=== PATIENT | male | born 1980 | race Caucasian/White ===

== ENCOUNTER 2022-06-11 03:21 | Inpatient (IN) | payer MEDICARE, OTHER ==
[~2022-06-11] VITALS: Ht 167.6 cm; Wt 82.5 kg
[2022-06-11] MEDS ORDERED: BACITRACIN 0.9 GM PACKET OINTMENT TP ONE (04:00)
[2022-06-11] MEDS ORDERED: PERTUSS(ACELL),DIPH,TET VAC/PF 0.5 ML SYRINGE IM. ONE (04:00)
[2022-06-11] MEDS ORDERED: TRIA15CR49 TP (07:32)
[2022-06-11] MEDS ORDERED: CHLO100T36 PO (07:32)
[2022-06-11] MEDS ORDERED: DESM0.2T4 PO (07:32)
[2022-06-11] MEDS ORDERED: GABA-533 PO (07:32)
[2022-06-11] MEDS ORDERED: OLAN20TA35 PO (07:32)
[2022-06-11] MEDS ORDERED: TOPI100T37 PO (07:32)
[2022-06-11] MEDS ORDERED: LEVO330T PO (07:32)
[2022-06-11] MEDS ORDERED: CLON0.5T4 PO (07:32)
[2022-06-11] MEDS ORDERED: RIFAX550 PO (07:32)
[2022-06-11] MEDS ORDERED: ALBU8HFA IH (07:32)
[2022-06-11] MEDS ORDERED: DESM0.1T23 PO (07:32)
[2022-06-11] MEDS ORDERED: DIVA-112 PO (07:32)
[2022-06-11] MEDS ORDERED: PROP20TA96 PO (07:32)
[2022-06-11 07:56] LABS: BASOPHILS % (AUTO) 0.2 % (0.0-2.0); EOSINOPHILS % (AUTO) 0.6 % (1.0-6.0); HEMOGLOBIN 12.6 g/dL (13.5-17.5); LYMPHOCYTES # (AUTO) 1.6 K/uL (1.0-4.8); LYMPHOCYTES % (AUTO) 25.4 % (22.0-44.0); MEAN CORPUSCULAR HGB CONC 34.1 G/dL (31.0-37.0); MEAN CORPUSCULAR VOLUME 97 fL (80-100); MONOCYTES # (AUTO) 0.9 K/uL (0.1-1.0); MONOCYTES % (AUTO) 14.4 % (2.0-9.0); NEUTROPHILS # (AUTO) 3.6 K/uL (1.8-7.7); NEUTROPHILS % (AUTO) 59.4 % (40.0-70.0); PLATELET COUNT (AUTO) 169 K/uL (150-450); RED BLOOD CELL COUNT(AUTO) 3.82 MIL/uL (4.50-5.90); RED CELL DISTRIBUTION WIDTH 13.2 % (11.5-14.5)
[2022-06-11 08:00] LABS: ANION GAP 6 mmol/L (8-16); CALCIUM, TOTAL 9.7 mg/dL (8.8-10.5); CARBON DIOXIDE 30 mmol/L (22-29); CHLORIDE 109 mmol/L (98-107); GLOMERULAR FILTR. RATE CALC > 60 mL/min (>60); GLUCOSE,RANDOM 87 mg/dL (70-110); POTASSIUM 4.2 mmol/L (3.5-5.1); SODIUM SERUM 145 mmol/L (136-145); UREA NITROGEN, BLOOD 11 mg/dL (7-18)
[2022-06-11 08:07] LABS: ALANINE AMINOTRANSFERASE 80 U/L (12-78); ALKALINE PHOSPHATASE 100 U/L (46-116); ASPARTATE AMINOTRANSFERASE 45 U/L (15-37); BILIRUBIN,TOTAL 0.2 mg/dL (0.1-1.0); COVID AG,FIA SOURCE NASAL SWAB; TOTAL PROTEIN, SERUM 7.9 g/dL (6.4-8.2); VALPROIC ACID 69 mcg/mL (50-100)
[2022-06-11 08:08] LABS: AMMONIA 15 umol/L (11-32)
[2022-06-11 08:09] LABS: LACTIC ACID 0.7 mmol/L (0.4-2.0)
[2022-06-11] MEDS ORDERED: SODIUM CHLORIDE 0.9% 1,000 ML IV ONE (08:30)
[2022-06-11] MEDS ORDERED: ACETAMINOPHEN 325 MG TABLET PO PRN (08:30)
[2022-06-11] MEDS ORDERED: CefTRIAXone 1 GM/DEXTROSE 50 ML IV ONE (08:30)
[2022-06-11] MEDS ORDERED: AZITHROMYCIN 500 MG/NS 250 ML IV ONE (08:30)
[2022-06-11] MEDS: DIVALPROEX SODIUM 250 MG DR TABLET PO SCH ×2 (09:00→23:41)
[2022-06-11 10:56] LABS: GLUCOSE,POINT OF CARE 83 MG/DL (70-110)
[2022-06-11] MEDS ORDERED: VALPROATE SODIUM 500 MG in DEXTROSE 5%-WATER 50 ML IV ONE (11:00)
[2022-06-11] MEDS: FAMOTIDINE 20 MG TABLET PO SCH (11:21)
[2022-06-11] MEDS: DOCUSATE SODIUM 100 MG CAPSULE PO SCH ×2 (11:22→20:12)
[2022-06-11 12:04] LABS: INFLUENZA TYPE A NEGATIVE FOR TYPE A (NEGATIVE); INFLUENZA TYPE B NEGATIVE FOR TYPE B (NEGATIVE)
[2022-06-11] MEDS: HEPARIN SODIUM,PORCINE 5,000 UNITS/ML VIAL SQ SCH ×2 (15:30→23:40)
[2022-06-11 19:16] LABS: AMPHET/METH SCREEN,URINE NEGATIVE (NEGATIVE); BARBITURATE SCREEN, URINE NEGATIVE (NEGATIVE); BENZODIAZEPINES SCREEN,URINE NEGATIVE (NEGATIVE); CANNABINOID SCREEN,URINE NEGATIVE (NEGATIVE); COCAINE SCREEN,URINE NEGATIVE (NEGATIVE); METHADONE SCREEN, URINE NEGATIVE (NEGATIVE); OPIATE SCREEN,URINE NEGATIVE (NEGATIVE); PHENCYCLIDINE SCREEN,URINE NEGATIVE (NEGATIVE)
[2022-06-11 19:32] LABS: APPEARANCE,URINE CLEAR (CLEAR); BILIRUBIN,URINE NEGATIVE (NEGATIVE); GLUCOSE, URINE (UA) NEGATIVE (NEGATIVE); KETONES,URINE NEGATIVE (NEGATIVE); LEUKOCYTE ESTERASE ,URINE NEGATIVE (NEGATIVE); NITRATE,URINE NEGATIVE (NEGATIVE); OCCULT BLOOD,URINE NEGATIVE (NEGATIVE); PROTEIN,URINE NEGATIVE (NEGATIVE); SPECIFIC GRAVITIY, URINE 1.012 (1.003-1.030); UROBILINOGEN,URINE <=1.0 mg/dL (<=1.0)
[2022-06-12] MEDS: CefTRIAXone 1 GM/DEXTROSE 50 ML IV SCH (07:48)
[2022-06-12] MEDS: HEPARIN SODIUM,PORCINE 5,000 UNITS/ML VIAL SQ SCH ×3 (08:00→23:55)
[2022-06-12] MEDS: DOCUSATE SODIUM 100 MG CAPSULE PO SCH ×2 (08:25→23:39)
[2022-06-12] MEDS: DIVALPROEX SODIUM 250 MG DR TABLET PO SCH (09:08)
[2022-06-12] MEDS: FAMOTIDINE 20 MG TABLET PO SCH (09:08)
[2022-06-12 09:38] VITALS: BP 117/91
[2022-06-12] MEDS ORDERED: LORazepam 2 MG/ML VIAL IVP PRN (11:30)
[2022-06-12 11:45] VITALS: BP 143/82
[2022-06-12] MEDS ORDERED: SODIUM CHLORIDE 0.9% 100 ML ONE (12:35)
[2022-06-12] MEDS ORDERED: BISMUTH SUBSALICYLATE 525 MG/30 ML SUSPENSION UDCUP PO PRN (13:30)
[2022-06-12] MEDS: LevETIRAcetam 750 MG in DEXTROSE 5%-WATER 100 ML IV SCH ×2 (13:55→23:53)
[2022-06-12 16:00] VITALS: BP 131/77
[2022-06-12 20:28] VITALS: BP 125/77
[2022-06-12] MEDS: DIVALPROEX SODIUM 500 MG DR TABLET PO SCH (23:40)
[2022-06-13 01:07] VITALS: BP 132/73
[2022-06-13 05:20] VITALS: BP 133/80
[2022-06-13] MEDS: DOCUSATE SODIUM 100 MG CAPSULE PO SCH (08:03)
[2022-06-13] MEDS: CefTRIAXone 1 GM/DEXTROSE 50 ML IV SCH (08:03)
[2022-06-13] MEDS: HEPARIN SODIUM,PORCINE 5,000 UNITS/ML VIAL SQ SCH (08:03)
[2022-06-13] MEDS: FAMOTIDINE 20 MG TABLET PO SCH (08:04)
[2022-06-13] MEDS: DIVALPROEX SODIUM 500 MG DR TABLET PO SCH (08:04)
[2022-06-13 08:24] VITALS: BP 132/75
[2022-06-13 11:39] VITALS: BP 138/83
[2022-06-13] MEDS: LevETIRAcetam 750 MG in DEXTROSE 5%-WATER 100 ML IV SCH (13:08)
[2022-06-13] MEDS ORDERED: LEVE250T4 PO (13:10)
[2022-06-13] MEDS ORDERED: LEVO-72 PO (13:11)
== END 2022-06-13 15:35 | disposition home health service (06) | DRG 100 ==
LOC: EMS 03:21 → AHU 10:29 → 5S 06-12 04:11
PROVIDERS: ADMIT Internal Medicine; ATTEND Internal Medicine
PROC: 0HQ0XZZ Repair Scalp Skin, External Approach (ICD-10-PCS; principal; 2022-06-11)
DX: G40.909 Epilepsy, unspecified, not intractable, without status epilepticus (principal); J69.0 Pneumonitis due to inhalation of food and vomit; Z20.822 Contact with and (suspected) exposure to COVID-19; S01.01XA Laceration without foreign body of scalp, initial encounter; R62.50 Unspecified lack of expected normal physiological development in childhood; W19.XXXA Unspecified fall, initial encounter; F32.A Depression, unspecified; Y93.01 Activity, walking, marching and hiking; Q90.9 Down syndrome, unspecified; Z88.8 Allergy status to other drugs, medicaments and biological substances; Z88.1 Allergy status to other antibiotic agents; Z91.040 Latex allergy status; Y92.89 Other specified places as the place of occurrence of the external cause; Y99.8 Other external cause status; T68.XXXA Hypothermia, initial encounter
CPT/HCPCS: 70450; 70551; 71045; 72125; 72141; 80053; 80164; 80307; 81003; 82140; 82962; 83605; 84484; 85025; 87040; 87804; 93005; 93306; 97161; 97530; 99285; G0378; G0480; J0456; J0696; J0712; J1644; J3490; J7050; J7060; 36415-L1; 36415-TC

== ENCOUNTER 2024-08-09 08:53 | Inpatient (IN) | payer MEDICARE, OTHER ==
[~2024-08-09] VITALS: Ht 157.5 cm; Wt 68.5 kg
[~2024-08-09 08:53] MED LIST: ALBU18HF12 IH; DIVA-112 PO; GABA-534 PO; LEVE250T81 PO; LEVO-72 PO; OLAN20TA82 PO; PROP20TA96 PO; RIFAX550 PO; TOPI-258 PO; TRIA15CR49 TP
[2024-08-09 09:30] LABS: ANION GAP 8 mmol/L (8-16); CALCIUM, TOTAL 8.9 mg/dL (8.8-10.5); CARBON DIOXIDE 25 mmol/L (22-29); CHLORIDE 107 mmol/L (98-107); CREATININE 0.85 mg/dL (0.60-1.30); GLOMERULAR FILTR. RATE CALC > 60 mL/min (>60); GLUCOSE,RANDOM 171 mg/dL (70-110); POTASSIUM 3.6 mmol/L (3.5-5.1); SODIUM SERUM 140 mmol/L (136-145); UREA NITROGEN, BLOOD 22 mg/dL (7-18)
[2024-08-09] MEDS: LORazepam 2 MG/ML VIAL IVP ONE (09:35)
[2024-08-09 09:38] LABS: BASOPHILS % (AUTO) 0.3 % (0.0-2.0); EOSINOPHILS % (AUTO) 2.4 % (1.0-6.0); HEMATOCRIT 37.7 % (41-53); HEMOGLOBIN 12.1 g/dL (13.5-17.5); LYMPHOCYTES # (AUTO) 2.2 K/uL (1.0-4.8); LYMPHOCYTES % (AUTO) 46.3 % (22.0-44.0); MEAN CORPUSCULAR HEMOGLOBIN 30.9 pg (26.0-34.0); MEAN CORPUSCULAR VOLUME 97 fL (80-100); MONOCYTES # (AUTO) 0.3 K/uL (0.1-1.0); MONOCYTES % (AUTO) 6.8 % (2.0-9.0); NEUTROPHILS # (AUTO) 2.1 K/uL (1.8-7.7); NEUTROPHILS % (AUTO) 44.2 % (40.0-70.0); PLATELET COUNT (AUTO) 171 K/uL (150-450); RED BLOOD CELL COUNT(AUTO) 3.91 MIL/uL (4.50-5.90); RED CELL DISTRIBUTION WIDTH 13.8 % (11.5-14.5); WHITE BLOOD COUNT (AUTO) 4.9 K/uL (4.5-11.0)
[2024-08-09] MEDS: LevETIRAcetam 1,000 MG in DEXTROSE 5%-WATER 100 ML IV ONE (09:44)
[2024-08-09] MEDS ORDERED: MELA5TAB40 PO (10:33)
[2024-08-09] MEDS ORDERED: CHLO100T42 PO (10:33)
[2024-08-09] MEDS ORDERED: OLAN10TA74 PO (10:33)
[2024-08-09] MEDS ORDERED: DESM0.2T4 PO (10:33)
[2024-08-09] MEDS ORDERED: TRAZ-257 PO (10:33)
[2024-08-09] MEDS ORDERED: GEMF-77 PO (10:33)
[2024-08-09 13:22] VITALS: BP 112/79; PULSE 65; RESP 18; TEMP 98; O2SAT 98
[2024-08-09] MEDS ORDERED: MORPHINE SULFATE 2 MG/ML SYRINGE IVP PRN (15:45)
[2024-08-09] MEDS ORDERED: ONDANSETRON HCL 4 MG/2 ML VIAL IVP PRN (15:45)
[2024-08-09] MEDS ORDERED: HYDROCODONE/ACETAMINOPHEN 5-325 MG TABLET PO PRN (15:45)
[2024-08-09] MEDS ORDERED: MELATONIN 5 MG TABLET PO PRN (15:45)
[2024-08-09] MEDS ORDERED: IPRATROPIUM BROMIDE 0.5 MG/2.5 ML NEB SOLUTION NEB PRN (15:45)
[2024-08-09] MEDS ORDERED: BISACODYL 10 MG RECTAL RECTAL SUPPOSITORY PR PRN (15:45)
[2024-08-09] MEDS ORDERED: ALBUTEROL SULFATE 2.5 MG/0.5 ML NEB SOLUTION NEB PRN (15:45)
[2024-08-09] MEDS ORDERED: MAGNESIUM HYDROXIDE SUSPENSION 30 ML UDCUP PO PRN (15:45)
[2024-08-09 15:48] VITALS: BP 102/77; PULSE 70; RESP 18; TEMP 98; O2SAT 96
[2024-08-09 16:17] LABS: ANION GAP 8 mmol/L (8-16); CALCIUM, TOTAL 9.1 mg/dL (8.8-10.5); CARBON DIOXIDE 25 mmol/L (22-29); CHLORIDE 108 mmol/L (98-107); CREATININE 0.66 mg/dL (0.60-1.30); GLOMERULAR FILTR. RATE CALC > 60 mL/min (>60); GLUCOSE,RANDOM 110 mg/dL (70-110); POTASSIUM 3.2 mmol/L (3.5-5.1); SODIUM SERUM 141 mmol/L (136-145); UREA NITROGEN, BLOOD 22 mg/dL (7-18)
[2024-08-09 16:21] LABS: ALANINE AMINOTRANSFERASE 20 U/L (12-78); ALBUMIN 3.3 g/dL (3.4-5.0); ALKALINE PHOSPHATASE 95 U/L (46-116); ASPARTATE AMINOTRANSFERASE 16 U/L (15-37); BILIRUBIN,TOTAL 0.3 mg/dL (0.1-1.0); TOTAL PROTEIN, SERUM 7.6 g/dL (6.4-8.2)
[2024-08-09] MEDS: PROPRANOLOL HCL 20 MG TABLET PO SCH (17:11)
[2024-08-09] MEDS: HEPARIN SODIUM,PORCINE 5,000 UNITS/ML VIAL SQ SCH (17:11)
[2024-08-09] MEDS: ChlorproMAZINE HCL 100 MG TABLET PO SCH (17:11)
[2024-08-09] MEDS: OLANZapine 10 MG TABLET PO SCH (17:12)
[2024-08-09] MEDS: LACTULOSE 20 GM/30 ML SOLUTION UDCUP PO SCH (17:12)
[2024-08-09 19:19] VITALS: BP 104/73; PULSE 75; RESP 14; TEMP 97.7; O2SAT 100
[2024-08-09 20:45] VITALS: BP 96/64; PULSE 75; RESP 18; TEMP 97.7; O2SAT 100
[2024-08-09] MEDS: GEMFIBROZIL 600 MG TABLET PO SCH (20:46)
[2024-08-09] MEDS: TraZODone HCL 100 MG TABLET PO SCH (20:48)
[2024-08-09] MEDS: DESMOPRESSIN ACETATE 0.2 MG TABLET PO SCH (20:48)
[2024-08-09] MEDS: DIVALPROEX SODIUM 500 MG DR TABLET PO SCH (20:51)
[2024-08-09 23:32] VITALS: BP 114/83; PULSE 76; RESP 15; TEMP 97.8; O2SAT 98
[2024-08-10 03:22] VITALS: BP 119/86; PULSE 89; RESP 16; TEMP 97.9; O2SAT 96
[2024-08-10 06:49] LABS: BASOPHILS % (AUTO) 0.5 % (0.0-2.0); EOSINOPHILS % (AUTO) 2.6 % (1.0-6.0); HEMATOCRIT 38.4 % (41-53); HEMOGLOBIN 12.9 g/dL (13.5-17.5); LYMPHOCYTES # (AUTO) 1.8 K/uL (1.0-4.8); LYMPHOCYTES % (AUTO) 29.5 % (22.0-44.0); MEAN CORPUSCULAR HEMOGLOBIN 31.7 pg (26.0-34.0); MEAN CORPUSCULAR HGB CONC 33.6 G/dL (31.0-37.0); MEAN CORPUSCULAR VOLUME 94 fL (80-100); MONOCYTES # (AUTO) 0.7 K/uL (0.1-1.0); MONOCYTES % (AUTO) 12.6 % (2.0-9.0); NEUTROPHILS # (AUTO) 3.3 K/uL (1.8-7.7); NEUTROPHILS % (AUTO) 54.8 % (40.0-70.0); PLATELET COUNT (AUTO) 173 K/uL (150-450); RED BLOOD CELL COUNT(AUTO) 4.07 MIL/uL (4.50-5.90); RED CELL DISTRIBUTION WIDTH 13.9 % (11.5-14.5)
[2024-08-10 07:07] LABS: ANION GAP 8 mmol/L (8-16); CARBON DIOXIDE 24 mmol/L (22-29); CHLORIDE 106 mmol/L (98-107); CREATININE 0.77 mg/dL (0.60-1.30); GLOMERULAR FILTR. RATE CALC > 60 mL/min (>60); GLUCOSE,RANDOM 102 mg/dL (70-110); POTASSIUM 3.7 mmol/L (3.5-5.1); SODIUM SERUM 138 mmol/L (136-145); UREA NITROGEN, BLOOD 19 mg/dL (7-18)
[2024-08-10 07:12] VITALS: BP 105/75; PULSE 83; RESP 17; TEMP 97.8; O2SAT 95
[2024-08-10] MEDS: GABAPENTIN 400 MG CAPSULE PO SCH (09:26)
[2024-08-10] MEDS: PANTOPRAZOLE SODIUM 40 MG DR TABLET PO SCH (09:27)
[2024-08-10] MEDS: ACETAMINOPHEN 325 MG TABLET PO PRN (09:28)
[2024-08-10 11:06] VITALS: BP 96/71; PULSE 82; RESP 18; TEMP 97.9; O2SAT 95
[2024-08-10 16:42] VITALS: BP 98/72; PULSE 80; RESP 18; TEMP 98; O2SAT 96
[2024-08-10 20:36] VITALS: BP 120/84; PULSE 93; RESP 18; TEMP 97.7; O2SAT 98
[2024-08-10] MEDS: ZOLPIDEM TARTRATE 5 MG TABLET PO PRN (23:44)
[2024-08-11 00:32] VITALS: BP 101/61; PULSE 75; RESP 18; TEMP 97.3; O2SAT 100
[2024-08-11 05:00] VITALS: BP 113/80; PULSE 70; RESP 18; TEMP 97.5; O2SAT 100
[2024-08-11 06:53] LABS: BASOPHILS % (AUTO) 0.6 % (0.0-2.0); EOSINOPHILS % (AUTO) 3.3 % (1.0-6.0); HEMATOCRIT 37.4 % (41-53); HEMOGLOBIN 12.5 g/dL (13.5-17.5); LYMPHOCYTES # (AUTO) 2.8 K/uL (1.0-4.8); LYMPHOCYTES % (AUTO) 44.6 % (22.0-44.0); MEAN CORPUSCULAR HEMOGLOBIN 31.7 pg (26.0-34.0); MEAN CORPUSCULAR HGB CONC 33.5 G/dL (31.0-37.0); MEAN CORPUSCULAR VOLUME 95 fL (80-100); MONOCYTES # (AUTO) 0.6 K/uL (0.1-1.0); MONOCYTES % (AUTO) 10.2 % (2.0-9.0); NEUTROPHILS # (AUTO) 2.6 K/uL (1.8-7.7); NEUTROPHILS % (AUTO) 41.3 % (40.0-70.0); PLATELET COUNT (AUTO) 178 K/uL (150-450); RED BLOOD CELL COUNT(AUTO) 3.96 MIL/uL (4.50-5.90); RED CELL DISTRIBUTION WIDTH 13.7 % (11.5-14.5); WHITE BLOOD COUNT (AUTO) 6.3 K/uL (4.5-11.0)
[2024-08-11 07:29] LABS: ANION GAP 11 mmol/L (8-16); CARBON DIOXIDE 24 mmol/L (22-29); CHLORIDE 105 mmol/L (98-107); GLOMERULAR FILTR. RATE CALC > 60 mL/min (>60); GLUCOSE,RANDOM 82 mg/dL (70-110); POTASSIUM 3.4 mmol/L (3.5-5.1); SODIUM SERUM 140 mmol/L (136-145); UREA NITROGEN, BLOOD 14 mg/dL (7-18)
[2024-08-11 08:02] LABS: CALCIUM, TOTAL 8.6 mg/dL (8.8-10.5)
[2024-08-11 08:30] VITALS: BP 130/87; PULSE 75; RESP 18; TEMP 97.9; O2SAT 98
[2024-08-11] MEDS: POTASSIUM CHLORIDE 20 MEQ ER TABLET PO ONE (11:01)
[2024-08-11 11:56] VITALS: BP 126/81; PULSE 77; RESP 18; TEMP 98.4; O2SAT 97
[2024-08-11] MEDS: LACTULOSE 20 GM/30 ML SOLUTION UDCUP PO SCH (13:42)
[2024-08-11 16:34] VITALS: BP 107/81; PULSE 80; RESP 19; TEMP 98.1; O2SAT 98
[2024-08-11 19:26] VITALS: BP 125/90; PULSE 82; RESP 16; TEMP 97.7; O2SAT 97
[2024-08-11] MEDS: ETHYL ALCOHOL 62% ANTISEPTIC NASAL SANITIZER 0.6 ML AMPUL NASAL SCH (20:18)
[2024-08-12 00:38] VITALS: BP 119/86; PULSE 84; RESP 15; TEMP 97.3; O2SAT 95
[2024-08-12 04:11] VITALS: BP 121/87; PULSE 89; RESP 15; TEMP 98.2; O2SAT 98
[2024-08-12 07:38] VITALS: BP 132/91; PULSE 79; RESP 18; TEMP 97.5; O2SAT 97
[2024-08-12 12:16] VITALS: BP_SYST 121; BP_SYST 128; BP_DIAS 71; BP_DIAS 91; PULSE 67; PULSE 99; RESP 18; TEMP 97.1; TEMP 97.9; O2SAT 96; O2SAT 97
[2024-08-12 15:23] VITALS: BP 132/97; PULSE 94; RESP 18; TEMP 97.7; O2SAT 96
== END 2024-08-12 16:40 | disposition home or self-care (01) | DRG 101 ==
LOC: EMS 08:54 → EDH 10:53 → 5S 12:10
PROVIDERS: ADMIT Hospitalist; ATTEND Hospitalist
DX: G40.909 Epilepsy, unspecified, not intractable, without status epilepticus (principal); E72.20 Disorder of urea cycle metabolism, unspecified; K76.82 Hepatic encephalopathy; E78.5 Hyperlipidemia, unspecified; Q90.9 Down syndrome, unspecified; F71 Moderate intellectual disabilities; Y92.89 Other specified places as the place of occurrence of the external cause; Z87.828 Personal history of other (healed) physical injury and trauma; R62.50 Unspecified lack of expected normal physiological development in childhood; F31.9 Bipolar disorder, unspecified
CPT/HCPCS: 71045; 80048; 80053; 80164; 82140; 85025; 87081; 93005; 93306; 95816; 96365; 96375; 99285; J0712; J1644; J2060; J7060; 36415-L1; 36415-TC

== ENCOUNTER 2024-09-23 17:39 | Emergency (ER) | payer MEDICARE ==
[~2024-09-23] VITALS: Ht 167.6 cm; Wt 65.9 kg
[~2024-09-23 17:39] MED LIST changes: -ALBU18HF12 IH; +CHLO100T42 PO; +DESM0.2T4 PO; +GEMF-77 PO; -LEVE250T81 PO; -LEVO-72 PO; +MELA5TAB40 PO; +OLAN10TA74 PO; -OLAN20TA82 PO; -RIFAX550 PO; -TOPI-258 PO; +TRAZ-257 PO; -TRIA15CR49 TP
[2024-09-23 17:49] VITALS: TEMP 98.3
[2024-09-23 18:15] LABS: BASOPHILS % (AUTO) 0.6 % (0.0-2.0); EOSINOPHILS % (AUTO) 2.7 % (1.0-6.0); HEMATOCRIT 39.4 % (41-53); HEMOGLOBIN 13.1 g/dL (13.5-17.5); LYMPHOCYTES # (AUTO) 1.9 K/uL (1.0-4.8); LYMPHOCYTES % (AUTO) 31.3 % (22.0-44.0); MEAN CORPUSCULAR HEMOGLOBIN 31.7 pg (26.0-34.0); MEAN CORPUSCULAR HGB CONC 33.3 G/dL (31.0-37.0); MEAN CORPUSCULAR VOLUME 95 fL (80-100); MONOCYTES # (AUTO) 0.6 K/uL (0.1-1.0); MONOCYTES % (AUTO) 10.3 % (2.0-9.0); NEUTROPHILS # (AUTO) 3.3 K/uL (1.8-7.7); NEUTROPHILS % (AUTO) 55.1 % (40.0-70.0); PLATELET COUNT (AUTO) 202 K/uL (150-450); RED BLOOD CELL COUNT(AUTO) 4.14 MIL/uL (4.50-5.90)
[2024-09-23] MEDS: LORazepam 2 MG TABLET PO ONE (18:19)
[2024-09-23] MEDS: DIVALPROEX SODIUM 500 MG ER TABLET PO ONE (18:19)
[2024-09-23 18:22] LABS: ANION GAP 8 mmol/L (8-16); CALCIUM, TOTAL 8.8 mg/dL (8.8-10.5); CARBON DIOXIDE 26 mmol/L (22-29); CHLORIDE 107 mmol/L (98-107); CREATININE 0.82 mg/dL (0.60-1.30); GLOMERULAR FILTR. RATE CALC > 60 mL/min (>60); GLUCOSE,RANDOM 104 mg/dL (70-110); POTASSIUM 3.5 mmol/L (3.5-5.1); SODIUM SERUM 141 mmol/L (136-145); UREA NITROGEN, BLOOD 13 mg/dL (7-18)
[2024-09-23 18:23] LABS: LIPASE 21 U/L (16-77)
[2024-09-23 18:29] LABS: ALCOHOL, BLOOD (SERUM) < 3 mg/dL (0-10)
[2024-09-23] MEDS ORDERED: LACT10SO85 PO (18:34)
[2024-09-23] MEDS: LACTULOSE 20 GM/30 ML SOLUTION UDCUP PO ONE (18:49)
[2024-09-23 20:43] VITALS: BP 128/88; PULSE 100; RESP 18; O2SAT 97
== END 2024-09-23 21:17 | disposition home or self-care (01) ==
LOC: EMS 17:40
DX: G40.909 Epilepsy, unspecified, not intractable, without status epilepticus (principal); F79 Unspecified intellectual disabilities; F20.9 Schizophrenia, unspecified; F88 Other disorders of psychological development; E72.20 Disorder of urea cycle metabolism, unspecified; Q90.9 Down syndrome, unspecified; F31.9 Bipolar disorder, unspecified; Z88.8 Allergy status to other drugs, medicaments and biological substances; Z91.040 Latex allergy status; Z79.899 Other long term (current) drug therapy
CPT/HCPCS: 99284; 80048; 82140; 83690; 85025; 36415; G0480

== ENCOUNTER → 2024-10-11 | Emergency (ER) | payer MEDICARE ==
[~2024-10-11] VITALS: Ht 160 cm; Wt 72.7 kg
[~2024-10-11] MED LIST changes: +LACT10SO85 PO
[2024-10-11 18:30] VITALS: TEMP 99.5
[2024-10-11 19:16] LABS: APPEARANCE,URINE CLEAR (CLEAR); BILIRUBIN,URINE NEGATIVE (NEGATIVE); COLOR,URINE LIGHT YELLOW (YELLOW); GLUCOSE, URINE (UA) NEGATIVE (NEGATIVE); KETONES,URINE NEGATIVE (NEGATIVE); LEUKOCYTE ESTERASE ,URINE TRACE (NEGATIVE); NITRATE,URINE NEGATIVE (NEGATIVE); OCCULT BLOOD,URINE NEGATIVE (NEGATIVE); PH,URINE 6.5 (5.0-8.0); PROTEIN,URINE NEGATIVE (NEGATIVE); SPECIFIC GRAVITIY, URINE 1.018 (1.003-1.030); UROBILINOGEN,URINE <=1.0 mg/dL (<=1.0)
[2024-10-11 19:27] LABS: RBC,URINE 0-2 /HPF (0-2)
[2024-10-11 19:28] LABS: BACTERIA,URINE Few /HPF (None Seen); SQUAMOUS EPITHELIAL CELL,UR Rare /LPF (None Seen)
[2024-10-11 23:33] VITALS: BP 110/59; PULSE 82; RESP 15; O2SAT 98
== END | disposition still patient (30) ==
LOC: EMS 17:22
DX: R35.0 Frequency of micturition (principal); F31.9 Bipolar disorder, unspecified; F20.9 Schizophrenia, unspecified; Z79.899 Other long term (current) drug therapy; Z91.09 Other allergy status, other than to drugs and biological substances
CPT/HCPCS: 81001; 99283